=== PATIENT | female | born 1955 | race African-American/Black ===

== ENCOUNTER 2018-01-28 10:35 | Inpatient (IN) | payer MEDICARE, MEDICAID ==
[~2018-01-28] VITALS: Ht 165.1 cm; Wt 104.3 kg
[~2018-01-28 10:35] MED LIST: ALBU18HF2 IH; AMLO10TA80 PO; ATOR10TA69 PO; BUPR100T6 PO; CHOL100046 PO; CITA40TA11 PO; DOCU-150 PO; FURO-151 PO; GABA-531 PO; HYDR-4005 PO; POTA10TA11 PO; RANI150T43 PO; ZOLP10TA2 PO
[2018-01-28] MEDS ORDERED: PANTOPRAZOLE SODIUM 40 MG/VIAL IV ONE (11:15)
[2018-01-28 11:54] LABS: HEMATOCRIT. 22.9 % (36.0-48.0); MEAN CORPUSCULAR VOLUME 81.1 fL (81.0-99.0); MEAN PLATELET VOLUME 7.5 fl (7.4-10.4); PLATELET 327 x1000/uL (130-400); RED BLOOD CELL COUNT 2.82 mill/uL (4.2-5.4)
[2018-01-28 11:58] LABS: PROTHROMBIN TIME 10.1 sec (9.1-11.1)
[2018-01-28 12:00] LABS: CHLORIDE 110 mEq/L (98-107)
[2018-01-28 12:10] LABS: HEMOGLOBIN. 6.8 g/dL (12.0-16.0)
[2018-01-28] MEDS ORDERED: ACETAMINOPHEN 325MG TABLET PO ONE (13:00)
[2018-01-28 13:18] LABS: PLATELET ESTIMATE NORMAL
[2018-01-28] MEDS ORDERED: HYDROCODONE/ACETAMINOPHEN 5/325MG TABLET PO ONE (16:00)
[2018-01-28] MEDS ORDERED: GUAIFENESIN 200MG/10ML SUGAR FREE UDC PO PRN (16:15)
[2018-01-28] MEDS ORDERED: ACETAMINOPHEN 325MG TABLET PO PRN (16:15)
[2018-01-28] MEDS ORDERED: MAGNESIUM/ALUMINUM HYDROXIDE/SIMETHICONE 30ML UDC PO PRN (16:15)
[2018-01-28] MEDS: PANTOPRAZOLE SODIUM 40 MG/VIAL IV SCH (16:15)
[2018-01-28] MEDS ORDERED: DOCUSATE SODIUM 100MG CAPSULE PO PRN (16:15)
[2018-01-28] MEDS ORDERED: HYDROCODONE/ACETAMINOPHEN 5/325MG TABLET PO PRN (16:15)
[2018-01-28] MEDS ORDERED: ONDANSETRON HCL 4MG/2ML INJ IV PRN (16:15)
[2018-01-28] MEDS ORDERED: CLONIDINE 0.1MG TABLET PO PRN (16:15)
[2018-01-28 16:34] LABS: TOTAL IRON BINDING CAPACITY 437 ug/dL (250-450)
[2018-01-28] MEDS ORDERED: DEXT 5%/0.45% NACL 1000ML 1,000 ML IV SCH (17:30)
[2018-01-28 17:47] VITALS: BP 157/88
[2018-01-28 20:00] VITALS: BP 125/84
[2018-01-28 20:08] LABS: HEMATOCRIT 21.8 % (36.0-48.0)
[2018-01-28 20:12] LABS: HEMOGLOBIN 6.5 g/dL (12.0-16.0)
[2018-01-28 21:43] VITALS: BP 115/79
[2018-01-28 21:58] VITALS: BP 129/67
[2018-01-28] MEDS ORDERED: LORA1TAB PO (21:58)
[2018-01-28] MEDS ORDERED: FERR325T6 PO (21:58)
[2018-01-28] MEDS ORDERED: CYCL10TA7 PO (21:58)
[2018-01-28] MEDS ORDERED: DOCUSATE SODIUM 250MG CAPSULE PO PRN (22:15)
[2018-01-28] MEDS ORDERED: IPRATROPIUM/ALBUTEROL 0.5-3(2.5)MG/3ML NEB HHN PRN (22:30)
[2018-01-28] MEDS ORDERED: ZOLPIDEM TARTRATE 5MG TABLET PO PRN (22:30)
[2018-01-28] MEDS ORDERED: HYDROCODONE/APAP 7.5/325MG 1 TAB TABLET PO PRN (22:30)
[2018-01-28] MEDS ORDERED: IPRA3AMP9 HHN (22:31)
[2018-01-28] MEDS ORDERED: HYDR-4009 PO (22:31)
[2018-01-28] MEDS ORDERED: ALBUTEROL (0.5%) 2.5MG/0.5ML NEB HHN PRN (22:45)
[2018-01-28] MEDS ORDERED: HYDROCODONE/ACETAMINOPHEN 10/325MG TABLET PO PRN (22:45)
[2018-01-28 22:58] VITALS: BP 135/75
[2018-01-28 23:50] VITALS: BP 135/71
[2018-01-29] VITALS (9 sets, daily range): BP systolic 116–163; BP diastolic 64–94
[2018-01-29 07:49] LABS: BASOPHILS % 0.5 % (0.0-2.0); EOSINOPHILS % 2.8 % (0.0-5.0); HEMATOCRIT. 26.4 % (36.0-48.0); LYMPHOCYTES % 18.1 % (20.0-50.0); MEAN PLATELET VOLUME 7.4 fl (7.4-10.4); MONOCYTES % 7.9 % (2.0-8.0); NEUTROPHILS % 70.7 % (40.0-76.0); PLATELET 300 x1000/uL (130-400); RED BLOOD CELL COUNT 3.22 mill/uL (4.2-5.4); RED CELL DISTRIBUTION WIDTH 18.4 % (11.6-14.6)
[2018-01-29 08:59] LABS: CHLORIDE 108 mEq/L (98-107)
[2018-01-29] MEDS ORDERED: BUPROPION HCL 75MG TABLET PO SCH (09:00)
[2018-01-29] MEDS ORDERED: LORAZEPAM 1MG TABLET PO SCH (09:00)
[2018-01-29] MEDS ORDERED: POTASSIUM CHLORIDE 10MEQ TABLET SR PO SCH (09:00)
[2018-01-29] MEDS ORDERED: FUROSEMIDE 40MG TABLET PO SCH (09:00)
[2018-01-29] MEDS ORDERED: CHOLECALCIFEROL (D3) 1000 UNIT TABLET PO SCH (09:00)
[2018-01-29] MEDS ORDERED: CITALOPRAM HYDROBROMIDE 40MG TABLET PO SCH (09:00)
[2018-01-29] MEDS ORDERED: FAMOTIDINE 20MG TABLET PO SCH (09:00)
[2018-01-29] MEDS ORDERED: AMLODIPINE 10MG TABLET PO SCH ×2 (09:00)
[2018-01-29] MEDS ORDERED: CYCLOBENZAPRINE 10MG TABLET PO SCH (09:00)
[2018-01-29] MEDS: PANTOPRAZOLE SODIUM 40 MG/VIAL IV SCH (09:09)
[2018-01-29] MEDS: FERROUS SULFATE 325MG TABLET PO SCH ×3 (09:11→18:27)
== END 2018-01-29 21:00 | disposition home or self-care (01) | DRG 379 ==
LOC: ER 10:35 → EDBEDREQ 11:12 → 8WST 12:33 → EDBEDREQ 12:36 → EDBEDREQTM 12:36 → ENRESERV 15:29 → CANBEDREQ 16:39
PROVIDERS: ADMIT Hospitalist; ATTEND Hospitalist
PROC: 30233N1 Transfusion of Nonautologous Red Blood Cells into Peripheral Vein, Percutaneous Approach (ICD-10-PCS; principal; 2018-01-28)
DX: K25.4 Chronic or unspecified gastric ulcer with hemorrhage (principal); E78.5 Hyperlipidemia, unspecified; F32.9 Major depressive disorder, single episode, unspecified; E78.00 Pure hypercholesterolemia, unspecified; J45.909 Unspecified asthma, uncomplicated; M19.90 Unspecified osteoarthritis, unspecified site; I10 Essential (primary) hypertension; D50.0 Iron deficiency anemia secondary to blood loss (chronic); K44.9 Diaphragmatic hernia without obstruction or gangrene; Z82.49 Family history of ischemic heart disease and other diseases of the circulatory system; Z90.710 Acquired absence of both cervix and uterus; Z90.89 Acquired absence of other organs; Z79.899 Other long term (current) drug therapy
CPT/HCPCS: 36415; 71045; 83540; 83550; 84484; 85014; 85018; 86850; 86870; 86900; 86920; 93005; 93970; 96374; 96375; 99285; C9113; J7050; P9016

== ENCOUNTER 2018-03-22 13:48 | Inpatient (IN) | payer MEDICARE, MEDICAID ==
[~2018-03-22] VITALS: Ht 165.1 cm; Wt 103.9 kg
[~2018-03-22 13:48] MED LIST changes: -ALBU18HF2 IH; -ATOR10TA69 PO; +CYCL10TA7 PO; +FERR325T6 PO; -GABA-531 PO; -HYDR-4005 PO; +HYDR-4009 PO; +IPRA3AMP9 HHN; +LORA1TAB PO
[2018-03-22] MEDS ORDERED: SODIUM CHLORIDE 0.9% 500 ML IV ONE (16:15)
[2018-03-22] MEDS ORDERED: PANTOPRAZOLE SODIUM 40 MG/VIAL IV ONE (16:15)
[2018-03-22 17:07] LABS: EOSINOPHILS % 1.2 % (0.0-5.0); LYMPHOCYTES % 17.1 % (20.0-50.0); MEAN CORPUSCULAR HEMOGLOBIN 21.7 pg (28.0-32.0); MEAN CORPUSCULAR VOLUME 79.3 fL (81.0-99.0); MEAN PLATELET VOLUME 7.5 fl (7.4-10.4); MONOCYTES % 8.5 % (2.0-8.0); NEUTROPHILS % 72.2 % (40.0-76.0); PLATELET 331 x1000/uL (130-400); RED CELL DISTRIBUTION WIDTH 25.9 % (11.6-14.6)
[2018-03-22 17:09] LABS: HEMATOCRIT. 19.8 % (36.0-48.0); HEMOGLOBIN. 5.4 g/dL (12.0-16.0)
[2018-03-22 17:11] LABS: CHLORIDE 116 mEq/L (98-107)
[2018-03-22 17:13] LABS: INR 1.1; PROTHROMBIN TIME 10.7 sec (9.1-11.1)
[2018-03-22 17:36] LABS: PLATELET ESTIMATE NORMAL
[2018-03-22 21:50] VITALS: BP 148/84
[2018-03-22 22:30] VITALS: BP 148/84
[2018-03-23] VITALS (15 sets, daily range): BP systolic 118–150; BP diastolic 62–82
[2018-03-23] MEDS ORDERED: CLONIDINE 0.1MG TABLET PO PRN
[2018-03-23] MEDS ORDERED: DOCUSATE SODIUM 100MG CAPSULE PO PRN
[2018-03-23] MEDS ORDERED: ONDANSETRON HCL 4MG/2ML INJ IV PRN
[2018-03-23] MEDS ORDERED: IPRATROPIUM/ALBUTEROL 0.5-3(2.5)MG/3ML NEB INH PRN
[2018-03-23] MEDS ORDERED: ZOLPIDEM TARTRATE 5MG TABLET PO PRN
[2018-03-23] MEDS: SODIUM CHLORIDE 0.9% 1,000 ML IV SCH ×2 (00:39→18:53)
[2018-03-23] MEDS: HYDROCODONE/ACETAMINOPHEN 10/325MG TABLET PO PRN ×3 (00:40→20:32)
[2018-03-23 00:47] LABS: TOTAL IRON BINDING CAPACITY 450 ug/dL (250-450)
[2018-03-23 07:32] LABS: MEAN CORPUSCULAR HEMOGLOBIN 22.4 pg (28.0-32.0); MEAN CORPUSCULAR VOLUME 78.9 fL (81.0-99.0); MEAN PLATELET VOLUME 7.1 fl (7.4-10.4); PLATELET 271 x1000/uL (130-400); RED BLOOD CELL COUNT 2.23 mill/uL (4.2-5.4); RED CELL DISTRIBUTION WIDTH 24.8 % (11.6-14.6)
[2018-03-23 07:53] LABS: HEMATOCRIT. 17.6 % (36.0-48.0)
[2018-03-23 08:34] LABS: CHLORIDE 115 mEq/L (98-107)
[2018-03-23] MEDS ORDERED: IPRATROPIUM/ALBUTEROL 0.5-3(2.5)MG/3ML NEB HHN PRN (11:00)
[2018-03-23] MEDS: CITALOPRAM HYDROBROMIDE 40MG TABLET PO SCH (12:34)
[2018-03-23] MEDS: FERROUS SULFATE 325MG TABLET PO SCH ×2 (12:34→18:53)
[2018-03-23] MEDS: PANTOPRAZOLE SODIUM 40 MG/VIAL IV SCH ×2 (12:46→20:20)
[2018-03-23 13:48] LABS: NUCLEATED RED BLOOD CELLS 2 /100 WBC
[2018-03-23 13:49] LABS: PLATELET ESTIMATE NORMAL
[2018-03-24] VITALS (8 sets, daily range): BP systolic 128–154; BP diastolic 71–86
[2018-03-24] MEDS: CITALOPRAM HYDROBROMIDE 40MG TABLET PO SCH (09:39)
[2018-03-24] MEDS: FERROUS SULFATE 325MG TABLET PO SCH ×3 (09:39→18:42)
[2018-03-24] MEDS: PANTOPRAZOLE SODIUM 40 MG/VIAL IV SCH ×2 (09:39→21:00)
[2018-03-24] MEDS: HYDROCODONE/ACETAMINOPHEN 10/325MG TABLET PO PRN ×2 (09:49→20:18)
[2018-03-24 10:12] LABS: BASOPHILS % 0.8 % (0.0-2.0); EOSINOPHILS % 2.1 % (0.0-5.0); HEMATOCRIT. 26.3 % (36.0-48.0); HEMOGLOBIN. 8.1 g/dL (12.0-16.0); LYMPHOCYTES % 11.6 % (20.0-50.0); MEAN CORPUSCULAR HEMOGLOBIN 24.6 pg (28.0-32.0); MEAN CORPUSCULAR VOLUME 79.7 fL (81.0-99.0); MEAN PLATELET VOLUME 7.2 fl (7.4-10.4); MONOCYTES % 8.1 % (2.0-8.0); NEUTROPHILS % 77.4 % (40.0-76.0); PLATELET 249 x1000/uL (130-400); RED CELL DISTRIBUTION WIDTH 21.3 % (11.6-14.6)
[2018-03-24 10:17] LABS: INR 1.1; PROTHROMBIN TIME 10.8 sec (9.1-11.1)
[2018-03-24 10:44] LABS: CHLORIDE 112 mEq/L (98-107)
[2018-03-24 10:49] LABS: FOLIC ACID (FOLATE) SERUM 14.2 ng/mL (>5.38)
[2018-03-24] MEDS: SODIUM CHLORIDE 0.9% 1,000 ML IV SCH (10:50)
[2018-03-24] MEDS: SUCRALFATE 1 G/10 ML UDC PO SCH ×3 (12:40→21:37)
[2018-03-24 15:50] LABS: HEMATOCRIT 27.6 % (36.0-48.0); HEMOGLOBIN 8.4 g/dL (12.0-16.0)
[2018-03-24 20:12] LABS: HEMATOCRIT 28.6 % (36.0-48.0); HEMOGLOBIN 8.7 g/dL (12.0-16.0)
[2018-03-25] VITALS: BP 112/65
[2018-03-25 04:00] VITALS: BP 149/76
[2018-03-25 08:00] VITALS: BP 136/78
[2018-03-25] MEDS: PANTOPRAZOLE SODIUM 40 MG/VIAL IV SCH ×2 (09:00→09:43)
[2018-03-25] MEDS: FERROUS SULFATE 325MG TABLET PO SCH ×2 (09:30→13:28)
[2018-03-25] MEDS: CITALOPRAM HYDROBROMIDE 40MG TABLET PO SCH (09:30)
[2018-03-25] MEDS: SUCRALFATE 1 G/10 ML UDC PO SCH ×2 (09:30→13:28)
[2018-03-25] MEDS: HYDROCODONE/ACETAMINOPHEN 10/325MG TABLET PO PRN (09:36)
[2018-03-25 12:00] VITALS: BP 135/79
[2018-03-25 12:09] VITALS: BP 136/80
== END 2018-03-25 15:21 | disposition home or self-care (01) | DRG 379 ==
LOC: ER 13:48 → 7WST 17:44 → ENRESERV 20:12
PROVIDERS: ADMIT Hospitalist; ATTEND Hospitalist
PROC: 30233N1 Transfusion of Nonautologous Red Blood Cells into Peripheral Vein, Percutaneous Approach (ICD-10-PCS; principal; 2018-03-22)
DX: K25.4 Chronic or unspecified gastric ulcer with hemorrhage (principal); J44.9 Chronic obstructive pulmonary disease, unspecified; D50.0 Iron deficiency anemia secondary to blood loss (chronic); F32.9 Major depressive disorder, single episode, unspecified; I10 Essential (primary) hypertension; K44.9 Diaphragmatic hernia without obstruction or gangrene; M19.90 Unspecified osteoarthritis, unspecified site; Z90.710 Acquired absence of both cervix and uterus; Z79.899 Other long term (current) drug therapy
CPT/HCPCS: 36415; 71045; 80048; 80076; 82607; 82728; 82746; 83540; 83550; 83880; 84484; 85014; 85018; 86850; 86900; 86920; 93005; 93970; 96374; 99291; C9113; J7030; J7040; J7050; P9016

== ENCOUNTER → 2020-02-03 | Outpatient (CLI) | payer MEDICARE, MEDICAID ==
[~2020-02-03] MED LIST changes: +GADOBENATE DIMEGLUMINE 529 MG/ML 10ML IV ONE; +RANI-655 PO; -RANI150T43 PO
== END | disposition home or self-care (01) ==
LOC: MRI 07:58
PROVIDERS: ATTEND Neurological Surgery
DX: I67.82 Cerebral ischemia (principal); M47.816 Spondylosis without myelopathy or radiculopathy, lumbar region; M43.17 Spondylolisthesis, lumbosacral region; M48.07 Spinal stenosis, lumbosacral region; M47.812 Spondylosis without myelopathy or radiculopathy, cervical region; M48.02 Spinal stenosis, cervical region; G95.89 Other specified diseases of spinal cord; M50.21 Other cervical disc displacement, high cervical region; M50.223 Other cervical disc displacement at C6-C7 level
CPT/HCPCS: 70553; 72141; 72148; A9577

== ENCOUNTER 2022-04-14 04:48 | Inpatient (IN) | payer MEDICARE, MEDICAID ==
[~2022-04-14] VITALS: Ht 165.1 cm; Wt 114.8 kg
[~2022-04-14 04:48] MED LIST changes: +ATOR20TA PO; +BUPR-113 PO; -BUPR100T6 PO; -CITA40TA11 PO; +CITA40TA69 PO; +CYCL10TA21 PO; -CYCL10TA7 PO; -GADOBENATE DIMEGLUMINE 529 MG/ML 10ML IV ONE; +P20 PO; +POTA-185 PO; -POTA10TA11 PO
[2022-04-14 05:59] LABS: BASOPHILS % 0.5 % (0.0-2.0); EOSINOPHILS % 2.1 % (0.0-5.0); HEMATOCRIT. 36.3 % (36.0-48.0); HEMOGLOBIN. 11.1 g/dL (12.0-16.0); LYMPHOCYTES % 12.8 % (20.0-50.0); MEAN CORPUSCULAR VOLUME 81.6 fL (81.0-99.0); MEAN PLATELET VOLUME 7.5 fl (7.4-10.4); MONOCYTES % 4.3 % (2.0-8.0); NEUTROPHILS % 80.3 % (40.0-76.0); PLATELET 247 x1000/uL (130-400); RED BLOOD CELL COUNT 4.45 mill/uL (4.2-5.4); RED CELL DISTRIBUTION WIDTH 18.7 % (11.6-14.6)
[2022-04-14 06:03] LABS: CHLORIDE 111 mEq/L (98-107)
[2022-04-14] MEDS ORDERED: ALBUTEROL (0.083%) 2.5MG/3ML NEB HHN STA (07:39)
[2022-04-14] MEDS ORDERED: IPRATROPIUM BROMIDE (0.02%) 0.5MG/2.5ML NEB HHN STA (07:39)
[2022-04-14] MEDS ORDERED: METHYLPREDNISOLONE SOD SUCC 125 MG/2 ML VIAL IV STA (07:39)
[2022-04-14] MEDS ORDERED: GUAIFENESIN 200MG/10ML SUGAR FREE UDC PO PRN (11:30)
[2022-04-14] MEDS ORDERED: ONDANSETRON HCL 4MG/2ML INJ IV PRN (11:30)
[2022-04-14] MEDS ORDERED: IPRATROPIUM/ALBUTEROL 0.5-3(2.5)MG/3ML NEB HHN PRN (11:30)
[2022-04-14] MEDS ORDERED: METHYLPREDNISOLONE SOD SUCC 125 MG/2 ML VIAL IV SCH (11:30)
[2022-04-14] MEDS ORDERED: TRAMADOL 50MG TABLET PO PRN (11:30)
[2022-04-14] MEDS: ENOXAPARIN 30MG/0.3ML SYR SUBCUT SCH ×2 (11:30→23:04)
[2022-04-14] MEDS ORDERED: ACETAMINOPHEN 325MG TABLET PO PRN (11:30)
[2022-04-14] MEDS ORDERED: DOCUSATE SODIUM 100MG CAPSULE PO PRN (11:30)
[2022-04-14] MEDS ORDERED: NALOXONE HCL 0.4MG/ML VIAL IV PRN (11:30)
[2022-04-14] MEDS ORDERED: CLONIDINE 0.1MG TABLET PO PRN (11:30)
[2022-04-14] MEDS ORDERED: MAGNESIUM/ALUMINUM HYDROXIDE/SIMETHICONE 30ML UDC PO PRN (11:30)
[2022-04-14] MEDS: METHYLPREDNISOLONE SOD SUCC 40 MG/ML VIAL IV SCH ×2 (13:49→23:05)
[2022-04-14] MEDS: IPRATROPIUM/ALBUTEROL 0.5-3(2.5)MG/3ML NEB HHN SCH ×2 (14:00→20:36)
[2022-04-14] MEDS: HYDROCODONE/ACETAMINOPHEN 5/325MG TABLET PO PRN ×2 (17:32→23:08)
[2022-04-14 20:00] VITALS: BP 141/74
[2022-04-14 21:45] VITALS: BP 141/74
[2022-04-14 21:58] VITALS: BP 141/74
[2022-04-14] MEDS ORDERED: APIX2.5T MT (21:58)
[2022-04-14] MEDS ORDERED: EMPA10TA MT (21:58)
[2022-04-15] VITALS: BP 131/74
[2022-04-15] MEDS: IPRATROPIUM/ALBUTEROL 0.5-3(2.5)MG/3ML NEB HHN SCH ×4 (03:38→21:09)
[2022-04-15 04:00] VITALS: BP 142/80
[2022-04-15] MEDS: HYDROCODONE/ACETAMINOPHEN 5/325MG TABLET PO PRN ×3 (05:00→20:50)
[2022-04-15] MEDS: METHYLPREDNISOLONE SOD SUCC 40 MG/ML VIAL IV SCH ×3 (05:00→20:50)
[2022-04-15 07:28] LABS: HEMATOCRIT. 33.5 % (36.0-48.0); HEMOGLOBIN. 10.5 g/dL (12.0-16.0); MEAN CORPUSCULAR HEMOGLOBIN 24.5 pg (28.0-32.0); MEAN CORPUSCULAR VOLUME 78.4 fL (81.0-99.0); MEAN PLATELET VOLUME 7.8 fl (7.4-10.4); PLATELET 235 x1000/uL (130-400); RED BLOOD CELL COUNT 4.27 mill/uL (4.2-5.4); RED CELL DISTRIBUTION WIDTH 18.5 % (11.6-14.6)
[2022-04-15 07:58] LABS: CHLORIDE 108 mEq/L (98-107)
[2022-04-15 08:00] VITALS: BP 117/87
[2022-04-15 08:08] LABS: HDL CHOLESTEROL 49 mg/dL (40-59); LDL CHOLESTEROL 110 mg/dL (5-100)
[2022-04-15] MEDS: ENOXAPARIN 30MG/0.3ML SYR SUBCUT SCH ×2 (09:01→20:50)
[2022-04-15] MEDS: ASPIRIN 81MG EC TABLET PO SCH (09:01)
[2022-04-15 11:58] LABS: BG BASE EXCESS 1.6 mmol/L (-2.0-2.0); BG CARBOXYHEMOGLOBIN 0.8 % (0.5-1.5); BG DEOXYHEMOGLOBIN 1.6 % (0.0-5.0); BG FRACTION INSPIRED OXYGEN 21; BG HCO3 ACT 25.4 mmol/L (22.0-26.0); BG METHEMOGLOBIN 0.2 % (0.0-1.5); BG OXYGEN SATURATION 98.4 % (92.0-98.5); BG OXYHEMOGLOBIN 97.4 % (94.0-97.0); BG PCO2 36.8 mmHg (35.0-45.0); BG PH 7.457 (7.350-7.450); BG PO2 116.1 mmHg (75.0-100.0); BG SAMPLE SITE RIGHT RADIAL; BG TOTAL HEMOGLOBIN 11.1 g/dL (12.0-18.0); BG VENT MODE ROOM AIR
[2022-04-15 12:00] VITALS: BP_SYST 101; BP_SYST 102; BP_DIAS 40; BP_DIAS 50
[2022-04-15 16:00] VITALS: BP 118/58
[2022-04-15 16:25] LABS: PLATELET ESTIMATE NORMAL
[2022-04-15 20:00] VITALS: BP 121/73
[2022-04-15] MEDS: FUROSEMIDE 40MG/4ML VIAL IVP SCH (20:49)
[2022-04-15] MEDS ORDERED: FUROSEMIDE 40MG TABLET PO SCH (21:00)
[2022-04-16] VITALS: BP 109/53
[2022-04-16] MEDS: IPRATROPIUM/ALBUTEROL 0.5-3(2.5)MG/3ML NEB HHN SCH ×2 (01:46→09:29)
[2022-04-16 04:00] VITALS: BP 131/88
[2022-04-16] MEDS: HYDROCODONE/ACETAMINOPHEN 5/325MG TABLET PO PRN ×2 (05:00→13:11)
[2022-04-16] MEDS: METHYLPREDNISOLONE SOD SUCC 40 MG/ML VIAL IV SCH ×2 (05:00→13:15)
[2022-04-16 07:07] LABS: HEMATOCRIT. 35.3 % (36.0-48.0); HEMOGLOBIN. 10.9 g/dL (12.0-16.0); MEAN CORPUSCULAR HEMOGLOBIN 24.4 pg (28.0-32.0); MEAN CORPUSCULAR VOLUME 79.1 fL (81.0-99.0); MEAN PLATELET VOLUME 7.6 fl (7.4-10.4); PLATELET 234 x1000/uL (130-400); RED BLOOD CELL COUNT 4.46 mill/uL (4.2-5.4); RED CELL DISTRIBUTION WIDTH 18.2 % (11.6-14.6)
[2022-04-16 07:58] LABS: CHLORIDE 105 mEq/L (98-107)
[2022-04-16 08:00] VITALS: BP 134/78
[2022-04-16] MEDS: FUROSEMIDE 40MG/4ML VIAL IVP SCH (09:17)
[2022-04-16] MEDS: ASPIRIN 81MG EC TABLET PO SCH (09:17)
[2022-04-16] MEDS: ENOXAPARIN 30MG/0.3ML SYR SUBCUT SCH (09:18)
[2022-04-16 11:32] VITALS: BP 148/94
[2022-04-16 12:00] VITALS: BP 143/94
[2022-04-16 13:11] VITALS: BP 143/94
[2022-04-16 13:11] LABS: PLATELET ESTIMATE NORMAL
== END 2022-04-16 15:05 | disposition home or self-care (01) | DRG 291 ==
LOC: ER 05:03 → MICUSO 10:27 → EDBEDREQTM 10:30 → EDBEDREQ 10:30 → 7EST 21:30
PROVIDERS: ADMIT Hospitalist; ATTEND Hospitalist
PROC: 5A09357 Assistance with Respiratory Ventilation, Less than 24 Consecutive Hours, Continuous Positive Airway Pressure (ICD-10-PCS; principal; 2022-04-14)
DX: I11.0 Hypertensive heart disease with heart failure (principal); I50.33 Acute on chronic diastolic (congestive) heart failure; J96.01 Acute respiratory failure with hypoxia; J44.1 Chronic obstructive pulmonary disease with (acute) exacerbation; D49.6 Neoplasm of unspecified behavior of brain; I27.20 Pulmonary hypertension, unspecified; E78.5 Hyperlipidemia, unspecified; F14.10 Cocaine abuse, uncomplicated; Z86.718 Personal history of other venous thrombosis and embolism; Z90.710 Acquired absence of both cervix and uterus; Z79.899 Other long term (current) drug therapy; Z82.49 Family history of ischemic heart disease and other diseases of the circulatory system
CPT/HCPCS: 36415; 36600; 71045; 80048; 80053; 80061; 82375; 82805; 83880; 84145; 84484; 85025; 87426; 93005; 93306; 93970; 99291; J1650; J1940; J2920; J2930